=== PATIENT | male | born 1945 | race Caucasian/White ===

== ENCOUNTER 2017-01-25 02:33 | Emergency (ER) | payer MEDICARE, BC ==
[~2017-01-25] VITALS: Ht 170.2 cm; Wt 98.0 kg
[2017-01-25] MEDS ORDERED: MORPHINE SULFATE 4 MG/ML, 1ML ONE (02:49)
[2017-01-25] MEDS ORDERED: ONDANSETRON 2MG/ML, 2ML ONE (02:49)
[2017-01-25 02:55] LABS: HEMOGLOBIN 13.3 g/dL (13.7-18.0)
[2017-01-25 02:58] LABS: ASPARTATE AMINO TRANSFERASE 19 U/L (15-37); BLOOD UREA NITROGEN 25 mg/dL (7-18)
[2017-01-25] MEDS ORDERED: MORPHINE SULFATE 4 MG/ML, 1ML IVPush PRN (03:00)
[2017-01-25] MEDS ORDERED: SODIUM CHLORIDE 0.9% 1,000ML IVBOLUS ONE (03:00)
[2017-01-25] MEDS ORDERED: ONDANSETRON 2MG/ML, 2ML IVPush ONE (03:00)
[2017-01-25] MEDS ORDERED: SODIUM CHLORIDE FLUSH 10ML SYR IVF ONE (03:00)
[2017-01-25 04:38] VITALS: BP 122/72
== END 2017-01-25 04:45 | disposition home or self-care (01) ==
LOC: ED 02:46
DX: S22.32XA Fracture of one rib, left side, initial encounter for closed fracture (principal); R10.12 Left upper quadrant pain; I10 Essential (primary) hypertension; W01.0XXA Fall on same level from slipping, tripping and stumbling without subsequent striking against object, initial encounter; Y93.89 Activity, other specified; Y92.59 Other trade areas as the place of occurrence of the external cause; Y99.8 Other external cause status
CPT/HCPCS: 36415; 71010; 74176; 80053; 85025; 96374; 96375; 99285; J2405; J7030